=== PATIENT | female | born 1975 | race Caucasian/White ===

== ENCOUNTER → 2017-10-30 | Outpatient (CLI) | payer OTHER ==
[2017-10-30 17:10] LABS: CSF PROTEIN 70 mg/dL (15-45)
[2017-10-30 17:11] LABS: CSF TUBE NUMBER TUBE #4
[2017-10-30 17:12] LABS: APPEARANCE CLEAR/COLORLESS; CSF EOSINOPHILS ND % (0-25); MONONUCLEAR WBC'S ND % (50-90); POLYNUCLEAR WBC'S ND % (0-3); RED CELL COUNT 15 /MM^3 (0-1); WHITE CELL COUNT 0 /MM^3 (0-5)
[2017-10-30 17:15] LABS: GLUCOSE, CSF 56 mg/dL (40-80)
[2017-10-30 17:37] LABS: APPEARANCE (RECHECK) CLEAR/COLORLESS; CSF TUBE NUMBER (RECHECK) TUBE #2; RED CELL COUNT (RECHECK) 7 /MM^3 (0-1)
[2017-10-31 17:21] LABS: Albumin, CSF 40.8 mg/dL (8.0-42.0); Albumin, Serum 4.1 g/dL (3.5-4.9); IgG Index, CSF 0.43 index (<0.66); IgG, CSF 4.4 mg/dL (0.8-7.7); IgG, Serum 1020 mg/dL (694-1618); Synthesis Rate IgG, CSF -4.1 mg/24 h (-9.9-3.3)
== END | disposition home or self-care (01) ==
LOC: RAD 14:47
PROVIDERS: Psychiatry & Neurology Clinical Neurophysiology
PROC: 009U3ZZ Drainage of Spinal Canal, Percutaneous Approach (ICD-10-PCS; principal; 2017-10-30)
DX: G37.9 Demyelinating disease of central nervous system, unspecified (principal)
CPT/HCPCS: 62270; 77003; 82945; 83873 90; 83916 90; 84157; 87070; 87205; 89051